=== PATIENT | male | born 1980 | race Two or more races ===

== ENCOUNTER → 2018-02-09 | Outpatient (CLI) | payer BC ==
[~2018-02-09] MED LIST: ACET-1600 PO; LISI-167 PO
== END ==
LOC: STAR 13:14
PROVIDERS: ATTEND Surgery
DX: Z02.9 Encounter for administrative examinations, unspecified (principal)

== ENCOUNTER 2018-02-14 13:03 | Day surgery (SDC) | payer BC ==
[~2018-02-14] VITALS: Ht 172.7 cm; Wt 75.3 kg
[~2018-02-14 13:03] MED LIST changes: +BUPIVACAINE/PF-EPI 0.5% 1:200K ONE; -LISI-167 PO
[2018-02-14] MEDS ORDERED: LACTATED RINGERS 1,000 ML IV SCH (13:35)
[2018-02-14] MEDS ORDERED: LISI-167 PO (13:55)
[2018-02-14 13:56] VITALS: BP 164/79
[2018-02-14] MEDS ORDERED: CEFAZOLIN 1,000 MG ONE ×2 (14:20)
[2018-02-14] MEDS ORDERED: MIDAZOLAM 1 MG/ML, 2ML ONE (14:20)
[2018-02-14] MEDS ORDERED: ROCURONIUM 10MG/ML,5ML ONE (14:20)
[2018-02-14] MEDS ORDERED: FENTANYL PF 250 MCG/5ML ONE (14:20)
[2018-02-14] MEDS ORDERED: PROPOFOL 10 MG/ML, 20ML ONE (14:20)
[2018-02-14] MEDS ORDERED: DEXAMETHASONE 4 MG/ML, 1ML ONE (14:36)
[2018-02-14] MEDS ORDERED: NEOSTIGMINE 1 MG/ML, 10ML ONE (14:36)
[2018-02-14] MEDS ORDERED: GLYCOPYRROLATE 0.2MG/1ML, 5ML ONE (14:36)
[2018-02-14] MEDS ORDERED: PROMETHAZINE 25 MG/ML, 1ML IV PRN (15:00)
[2018-02-14] MEDS ORDERED: HALOPERIDOL 5 MG/ML IV PRN (15:00)
[2018-02-14] MEDS ORDERED: FENTANYL PF 100 MCG/2ML IV PRN (15:00)
[2018-02-14] MEDS ORDERED: hydrALAzine 20 MG/ML, 1ML IV PRN (15:00)
[2018-02-14] MEDS ORDERED: LABETALOL 5MG/ML, 20ML IV PRN (15:00)
[2018-02-14] MEDS ORDERED: EPHEDRINE 50 MG/ML, 1ML IVPush PRN (15:00)
[2018-02-14] MEDS ORDERED: ACETAMINOPHEN 325 MG TABLET PO PRN (15:00)
[2018-02-14] MEDS ORDERED: ALBUTEROL SULFATE 2.5 MG/3 ML NPPB PRN (15:00)
[2018-02-14] MEDS ORDERED: OXYcodone 5 MG/5 ML ORAL.SOL UDC PO PRN (15:00)
[2018-02-14] MEDS ORDERED: METOPROLOL 1 MG/ML, 5ML IV PRN (15:00)
[2018-02-14] MEDS ORDERED: ONDANSETRON 0.8 MG/ML ORAL SOL PO PRN (15:00)
[2018-02-14] MEDS ORDERED: MEPERIDINE/PF 25MG/0.5ML IVPush PRN (15:00)
[2018-02-14] MEDS ORDERED: ONDANSETRON 2MG/ML, 2ML ONE (15:34)
[2018-02-14] MEDS ORDERED: ACETAMINOPHEN 650 MG/20.3 ML UDC ONE (15:35)
[2018-02-14] MEDS ORDERED: OXYcodone 5 MG/5 ML ORAL.SOL UDC ONE (15:35)
[2018-02-14] MEDS ORDERED: ONDANSETRON 2MG/ML, 2ML IVPush PRN (16:00)
== END 2018-02-14 17:20 ==
LOC: OUT 13:03
PROVIDERS: ATTEND Surgery
DX: M79.89 Other specified soft tissue disorders (principal); I10 Essential (primary) hypertension
CPT/HCPCS: 21931; 88305; J0690; J1100; J2250; J2405; J2704; J2710; J3010; J7120; 88311; J3490